=== PATIENT | male | born 1940 | race Caucasian/White ===

== ENCOUNTER 2017-01-30 11:58 | Emergency (ER) | payer OTHER, MEDICAID ==
[~2017-01-30] VITALS: Ht 160 cm; Wt 80.0 kg
[~2017-01-30 11:58] MED LIST: ASPI81TA3 PO; AUG875 PO; GLIP-95 PO; METF500T3 PO; SIMV40TA2 PO; SITA50TA2 PO; metoprolol PO
[2017-01-30 12:02] VITALS: Ht 160 cm; Wt 80.0 kg
--- NOTE | 2017-01-30 16:56 | RADRPT ---
PROCEDURE: XR Foot. CLINICAL INDICATION: Mid foot pain. TECHNIQUE: Three views of the right foot are available for review. COMPARISON: None available. FINDINGS: There is no acute fracture, dislocation, or other osteoarticular abnormality. The alignme nt is normal. The soft tissues are unremarkable. The osseous mineralization is within normal limits. IMPRESSION: 1. Unremarkable right foot x-ray series. RPTAT: HLBP .Jg Busch MD, MD Date Time Electronically viewed and signed by .Jg Busch MD, on 01/30/2017 16:56 .P/
--- NOTE | 2017-01-30 17:01 | ERD ---
ER Documentation Chief Complaint Date/Time DATE: 01/30/17 TIME: 16:59 Chief Complaint RIGHT FOOT PAIN X 2 DAYS HPI 76 y/o male with history of T2DM with diabetic neuropathy, presents to the ER, c /o of 2 days with acute onset of sharp pain on right midfoot. 09/24. Denies any trauma, pain is worsened by direct pressure and walking for prolonged period of time. No fever, chills, no local erythema, edema or deformity ROS All systems reviewed and are negative except as per history of present illness. Medications Home Meds Active Scripts Hydrocodone/Acetaminophen ([place] 5-325 Tablet) 1 Each Tablet, 1 TAB PO Q6H Y for PAIN, #20 TAB Prov:MIRNA CARRASCO MD 01/30/17 Amoxicillin-Clavulanate K* (Augmentin*) 875 Mg Tab, 875 MG PO BID for 7 Days, TAB Prov:ROBERTO CARLOS GRAYSON PA-C 06/04/15 Reported Medications [metoprolol] No Conflict Check, PO BID 11/02/13 Sitagliptin* (Januvia*) 50 Mg Tablet, 50 MG PO DAILY, TAB 11/02/13 Aspirin* (Aspirin* Chew) 81 Mg Tab.chew, 81 MG PO DAILY, TAB.CHEW 11/02/13 Simvastatin* (Zocor*) 40 Mg Tablet, 40 MG PO HS, TAB 11/02/13 Glipizide* (Glipizide*) 10 Mg Tablet, 20 PO BID 09/19/09 Metformin Hcl* (Metformin Hcl* ER) 500 Mg Tab.sr.24h, 1000 PO BID 09/19/09 Allergies Allergies: Coded Allergies: No Known Drug Allergy (Verified Allergy, Unknown, 01/30/17) PMhx/Soc The patient has history of DM controlled with oral medications, diabetic neuropathy, Prostate cancer. Anesthesia Reaction: No Hx Neurological Disorder: No Hx Respiratory Disorders: No Hx Cardiac Disorders: Yes (CAD, HTN) Hx Psychiatric Problems: No Hx Alcohol Use: No Hx Substance Use: No Hx Tobacco Use: No Smoking Status: Never smoker Physical Exam Vitals Vital Signs Date Time Temp Pulse Resp B/P Pulse Ox O2 Delivery O2 Flow Rate FiO2 01/30/17 17:37 98.0 71 18 122/64 100 Room Air 01/30/17 12:02 98.2 61 18 110/56 99 Physical Exam Head: Atraumatic Eyes: Normal Conjunctiva ENT: Normal External Ears, Nose and Mouth. Neck: Full range of motion..~ No meningismus. Resp: Clear to auscultation bilaterally Cardio: Regular rate and rhythm, no murmurs Ext: No cyanosis, or edema, (+) pedal pulses. Cap refill <3sec Rt foot: Normal inspection, full range of motion. Decreased sensation to light touch. No ulcers, no deformity. Psych: Normal Mood and Affect Procedures/MDM Acute right foot pain: Differential includes gout, neuropathy, stress Fx, cellulitis, ulcer. Physical exam unremarkable, except for symmetrical decreased sensation. XR requested: There is no acute fracture, dislocation, or other osteoarticular abnormality. The alignment is normal. The soft tissues are unremarkable. The osseous mineralization is within normal limits. Results d/w patient, likely pain related to neuropathy. Recommend strict BS control, pain management and f/u with PCP Departure Diagnosis: Primary Impression: Foot pain Additional Impression: Diabetic neuropathy Condition: Stable MIRNA CARRASCO MD Jan 30, 2017 17:01
[2017-01-30] MEDS ORDERED: HYDR-906 PO (17:03)
[2017-01-30 17:37] VITALS: BP 122/64; PULSE 71; RESP 18; TEMP 98
== END 2017-01-30 17:38 | disposition home or self-care (01) ==
LOC: FTE 11:58
DX: E11.40 Type 2 diabetes mellitus with diabetic neuropathy, unspecified (principal); I10 Essential (primary) hypertension; I25.10 Atherosclerotic heart disease of native coronary artery without angina pectoris; Z79.82 Long term (current) use of aspirin; Z79.84 Long term (current) use of oral hypoglycemic drugs; Z85.46 Personal history of malignant neoplasm of prostate
CPT/HCPCS: 73630

== ENCOUNTER 2017-03-27 21:47 | Emergency (ER) | payer OTHER, MEDICAID ==
[~2017-03-27] VITALS: Ht 162.6 cm; Wt 83.1 kg
[~2017-03-27 21:47] MED LIST changes: -AUG875 PO; +HYDR-906 PO
[2017-03-27 22:00] VITALS: Ht 162.6 cm; Wt 83.1 kg
[2017-03-28 04:02] LABS: ALANINE AMINOTRANSFERASE 27 IU/L (13-69); ALBUMIN 3.9 g/dl (3.3-4.9); ALBUMIN/GLOBULIN RATIO 1.34; ALKALINE PHOSPHATASE 79 IU/L (42-121); ANION GAP 14 (8-16); ASPARTATE AMINO TRANSFERASE 18 IU/L (15-46); BILIRUBIN,INDIRECT 0.2 mg/dl (0-1.1); BILIRUBIN,TOTAL 0.2 mg/dl (0.2-1.3); BLOOD UREA NITROGEN 24 mg/dl (7-20); CALCIUM 9.5 mg/dl (8.4-10.2); CARBON DIOXIDE 30 mmol/L (21-31); CHLORIDE 101 mmol/L (97-110); CREATININE 1.07 mg/dl (0.61-1.24); GLUCOSE 311 mg/dl (70-220); POTASSIUM 4.2 mmol/L (3.5-5.1); SODIUM 141 mmol/L (135-144); TOTAL PROTEIN 6.8 g/dl (6.1-8.1)
[2017-03-28 04:10] LABS: BASOPHILS % 0.3 % (0.0-2.0); EOSINOPHILS # 0.2 10^3/ul (0.0-0.5); EOSINOPHILS % 3.4 % (0.0-7.0); HEMATOCRIT 39.2 % (42.0-52.0); HEMOGLOBIN 13.2 g/dl (14.0-18.0); LYMPHOCYTES # 2.1 10^3/ul (0.8-2.9); MEAN CORPUSCULAR HEMOGLOBIN 31.9 pg (29.0-33.0); MEAN CORPUSCULAR HGB CONC 33.7 g/dl (32.0-37.0); MEAN CORPUSCULAR VOLUME 94.7 fl (82.0-101.0); MEAN PLATELET VOLUME 9.5 fl (7.4-10.4); MONOCYTE # 0.8 10^3/ul (0.3-0.9); MONOCYTES % 11.3 % (0.0-11.0); NEUTROPHIL # 3.7 10^3/ul (1.6-7.5); NEUTROPHILS % 53.7 % (39.0-77.0); PLATELET COUNT 253 10^3/UL (140-415); RED BLOOD COUNT 4.14 10^6/ul (4.70-6.10); WHITE BLOOD COUNT 6.8 10^3/ul (4.8-10.8)
[2017-03-28 04:19] LABS: TROPONIN-I < 0.012 ng/ml (0.00-0.12)
--- NOTE | 2017-03-28 05:37 | ERD ---
ER Documentation Chief Complaint Chief Complaint shivering started 2 hours ago feels like my BS is low; [id number] triage HPI 76 year male was started "sugar" 2 hours ago and states his blood sugar feels that is low. His blood sugar checked 3-50 at bedtime. His symptoms since resolved. Patient said he was also very mildly stressed out. No other current complaints. ROS All systems reviewed and are negative except as per history of present illness. Medications Home Meds Active Scripts Hydrocodone/Acetaminophen ([place] 5-325 Tablet) 1 Each Tablet, 1 TAB PO Q6H Y for PAIN, #20 TAB Prov:MIRNA CARRASCO MD 01/30/17 Reported Medications [metoprolol] No Conflict Check, PO BID 11/02/13 Sitagliptin* (Januvia*) 50 Mg Tablet, 50 MG PO DAILY, TAB 11/02/13 Aspirin* (Aspirin* Chew) 81 Mg Tab.chew, 81 MG PO DAILY, TAB.CHEW 11/02/13 Simvastatin* (Zocor*) 40 Mg Tablet, 40 MG PO HS, TAB 11/02/13 Glipizide* (Glipizide*) 10 Mg Tablet, 20 PO BID 09/19/09 Metformin Hcl* (Metformin Hcl* ER) 500 Mg Tab.sr.24h, 1000 PO BID 09/19/09 Allergies Allergies: Coded Allergies: No Known Drug Allergy (Verified Allergy, Unknown, 01/30/17) PMhx/Soc History of Surgery: No Anesthesia Reaction: No Hx Neurological Disorder: No Hx Respiratory Disorders: No Hx Cardiac Disorders: Yes (stents) Hx Psychiatric Problems: No Hx Miscellaneous Medical Probl: Yes (dm) Hx Alcohol Use: No Hx Substance Use: No Hx Tobacco Use: No Smoking Status: Never smoker Physical Exam Vitals Vital Signs Date Time Temp Pulse Resp B/P Pulse Ox O2 Delivery O2 Flow Rate FiO2 03/28/17 04:42 98.7 57 18 137/73 97 Room Air 03/28/17 03:00 98.7 58 18 123/71 97 Room Air 03/27/17 22:00 98.7 65 20 112/60 97 Physical Exam Const: [] Head: Atraumatic Eyes: Normal Conjunctiva ENT: Normal External Ears, Nose and Mouth. Neck: Full range of motion..~ No meningismus. Resp: Clear to auscultation bilaterally Cardio: Regular rate and rhythm, no murmurs Abd: Soft, non tender, non distended. Normal bowel sounds Skin: No petechiae or rashes Back: No midline or flank tenderness Ext: No cyanosis, or edema Neur: Awake and alert Psych: Normal Mood and Affect Result Diagram: 03/28/176 03/28/17315 Results 24 hrs Laboratory Tests Test 03/27/17 21:59 03/28/17 03:16 03/28/17 04:08 Bedside Glucose 258mg/dL 264mg/dL White Blood Count 6.810^3/ul Red Blood Count 4.1410^6/ul Hemoglobin 13.2g/dl Hematocrit 39.2% Mean Corpuscular Volume 94.7fl Mean Corpuscular Hemoglobin 31.9pg Mean Corpuscular Hemoglobin Concent 33.7g/dl Red Cell Distribution Width 12.0% Platelet Count 58833^3/UL Mean Platelet Volume 9.5fl Neutrophils % 53.7% Lymphocytes % 31.0% Monocytes % 11.3% Eosinophils % 3.4% Basophils % 0.3% Nucleated Red Blood Cells % 0.0/100WBC Neutrophils # 3.710^3/ul Lymphocytes # 2.110^3/ul Monocytes # 0.810^3/ul Eosinophils # 0.210^3/ul Basophils # 0.010^3/ul Nucleated Red Blood Cells # 0.010^3/ul Sodium Level 141mmol/L Potassium Level 4.2mmol/L Chloride Level 101mmol/L Carbon Dioxide Level 30mmol/L Anion Gap 14 Blood Urea Nitrogen 24mg/dl Creatinine 1.07mg/dl Glucose Level 311mg/dl Calcium Level 9.5mg/dl Total Bilirubin 0.2mg/dl Direct Bilirubin 0.00mg/dl Indirect Bilirubin 0.2mg/dl Aspartate Amino Transf (AST/SGOT) 18IU/L Alanine Aminotransferase (ALT/SGPT) 27IU/L Alkaline Phosphatase 79IU/L Troponin I < 0.012ng/ml Total Protein 6.8g/dl Albumin 3.9g/dl Globulin 2.90g/dl Albumin/Globulin Ratio 1.34 Procedures/MDM Medical decision-makin-year-old male with signs blood sugar feels well. No evidence of hypoglycemia here. Vital signs stable. Stable for outpatient management. Departure Diagnosis: Primary Impression: Multiple complaints Condition: Stable ALYSSA HERMAN Mar 28, 2017 05:37
[2017-03-28 05:51] VITALS: BP 137/74; PULSE 56; RESP 19; TEMP 98.7
[2017-03-28] MEDS ORDERED: CAPS42.510 TOP (08:38)
== END 2017-03-28 06:05 | disposition home or self-care (01) ==
LOC: E/R 21:47
DX: E11.649 Type 2 diabetes mellitus with hypoglycemia without coma (principal); R53.1 Weakness; Z79.84 Long term (current) use of oral hypoglycemic drugs; Z79.82 Long term (current) use of aspirin
CPT/HCPCS: 80053; 82962; 84484; 85025; 93005

== ENCOUNTER 2017-03-28 08:16 | Emergency (ER) | payer OTHER, MEDICAID ==
[~2017-03-28] VITALS: Wt 83.0 kg
[2017-03-28] MEDS ORDERED: CAPS42.510 TOP (08:38)
--- NOTE | 2017-03-28 09:23 | ERD ---
ER Documentation Chief Complaint Chief Complaint Left foot numbness x 2 years HPI Patient is a 76-year-old male with diabetes who presents with bilateral foot numbness. He said that he has had this for "a long time" approximately 2 years. He has diabetes type 2 and takes gabapentin. His primary doctor is Dr. Burgos. Upon review of old medical records this is the patient's ninth visit since 2008. He has had no fevers or redness to the feet. ROS All systems reviewed and are negative except as per history of present illness. Medications Home Meds Active Scripts Capsaicin (Capsaicin) 42.5 Gm Cream.gm., 1 APPLIC TOP QID, #1 TUB Prov:YOLI ALBERTO MD 03/28/17 Hydrocodone/Acetaminophen ([place] 5-325 Tablet) 1 Each Tablet, 1 TAB PO Q6H Y for PAIN, #20 TAB Prov:MIRNA CARRASCO MD 01/30/17 Reported Medications [metoprolol] No Conflict Check, PO BID 11/02/13 Sitagliptin* (Januvia*) 50 Mg Tablet, 50 MG PO DAILY, TAB 11/02/13 Aspirin* (Aspirin* Chew) 81 Mg Tab.chew, 81 MG PO DAILY, TAB.CHEW 11/02/13 Simvastatin* (Zocor*) 40 Mg Tablet, 40 MG PO HS, TAB 11/02/13 Glipizide* (Glipizide*) 10 Mg Tablet, 20 PO BID 09/19/09 Metformin Hcl* (Metformin Hcl* ER) 500 Mg Tab.sr.24h, 1000 PO BID 09/19/09 Allergies Allergies: Coded Allergies: No Known Drug Allergy (Verified Allergy, Unknown, 01/30/17) PMhx/Soc History of Surgery: No Anesthesia Reaction: No Hx Neurological Disorder: No Hx Respiratory Disorders: No Hx Cardiac Disorders: Yes (stents) Hx Psychiatric Problems: No Hx Miscellaneous Medical Probl: Yes (dm) Hx Alcohol Use: No Hx Substance Use: No Hx Tobacco Use: No Smoking Status: Never smoker FmHx Family History: No diabetes Physical Exam Vitals Vital Signs Date Time Temp Pulse Resp B/P Pulse Ox O2 Delivery O2 Flow Rate FiO2 03/28/17 08:21 98.5 65 18 139/83 97 Physical Exam Const: No acute distress Head: Atraumatic Eyes: Normal Conjunctiva ENT: Normal External Ears, Nose and Mouth. Neck: Full range of motion..~ No meningismus. Resp: Clear to auscultation bilaterally Cardio: Regular rate and rhythm, no murmurs Abd: Soft, non tender, non distended. Normal bowel sounds Skin: No petechiae or rashes, no sign of infection to the feet bilaterally Back: No midline or flank tenderness Ext: No cyanosis, or edema, patient has capillary refill in all 10 toes less than 2 seconds Neur: Awake and alert Psych: Normal Mood and Affect Procedures/MDM Patient is a 76-year-old male presents with what appears to be diabetic neuropathy. The patient takes gabapentin already but I will give him a prescription for capsaicin cream. He can follow-up with his primary doctor within 1 week for reevaluation. There does not appear to be any acute ischemia at this time and I see no signs of infection. He can return for any worsening symptoms. Departure Diagnosis: Primary Impression: Diabetic neuropathy Diabetes mellitus type: type 2 Diabetes mellitus complication detail: diabetic polyneuropathy Qualified Code: E11.42 - Diabetic polyneuropathy associated with type 2 diabetes mellitus Additional Impression: Numbness Condition: Fair Patient Instructions: Neuropathy, Peripheral Additional Instructions: Llame al doctor nombrado abajo (Referral Sources) MAANA y [place]aveen [place] VIKKI PARA DENTRO DE [place] SEMANA. Dgale a la secretaria que nosotros le instruimos hacer esta vikki.Avise o llame si pantoja condicin se empeora antes de la vikki. YOLI ALBERTO MD Mar 28, 2017 09:23
== END 2017-03-28 08:59 | disposition home or self-care (01) ==
LOC: E/R 08:16
DX: E11.42 Type 2 diabetes mellitus with diabetic polyneuropathy (principal); Z79.84 Long term (current) use of oral hypoglycemic drugs; Z79.82 Long term (current) use of aspirin
CPT/HCPCS: 99283

== ENCOUNTER 2017-04-03 00:59 | Emergency (ER) | END 2017-04-03 10:18 | disposition home or self-care (01) ==

== ENCOUNTER 2017-04-18 11:13 | Emergency (ER) | END 2017-04-18 11:44 | disposition home or self-care (01) ==

== ENCOUNTER 2017-05-06 07:20 | Emergency (ER) | END 2017-05-06 09:28 | disposition home or self-care (01) ==